=== PATIENT | male | born 2000 | race Two or more races ===

== ENCOUNTER 2021-04-07 19:13 | Emergency (ER) | payer BC, OTHER ==
[~2021-04-07] VITALS: Ht 185.4 cm; Wt 127.0 kg
[2021-04-07 21:11] VITALS: BP 149/79
[2021-04-07] MEDS ORDERED: SODIUM CHLORIDE 0.9% 250 ML IV ONE (21:45)
[2021-04-07] MEDS ORDERED: CLINDAMYCIN 900MG IV 50 ML IV ONE (21:45)
== END 2021-04-08 01:23 | disposition home or self-care (01) ==
LOC: ER 19:13
DX: L03.116 Cellulitis of left lower limb (principal)
CPT/HCPCS: 96361; 96365; 99284; J3490; J7030

== ENCOUNTER 2021-06-04 11:22 | Emergency (ER) | payer BC ==
[~2021-06-04] VITALS: Ht 185.4 cm; Wt 131.5 kg
[2021-06-04 11:24] VITALS: BP 146/72
== END 2021-06-04 13:36 | disposition home or self-care (01) ==
LOC: ER 11:22
DX: S93.401A Sprain of unspecified ligament of right ankle, initial encounter (principal); X50.0XXA Overexertion from strenuous movement or load, initial encounter; Y93.89 Activity, other specified; Y92.89 Other specified places as the place of occurrence of the external cause; Y99.8 Other external cause status
CPT/HCPCS: 73610

== ENCOUNTER 2023-09-19 15:47 | Emergency (ER) | payer SELFPAY ==
[~2023-09-19] VITALS: Ht 182.9 cm; Wt 143.3 kg
[2023-09-19] MEDS ORDERED: IBUP-1455 PO (19:21)
[2023-09-19] MEDS ORDERED: AMOX875T4 PO (19:21)
[2023-09-19 19:32] VITALS: BP 148/87; PULSE 88; RESP 17; TEMP 98.2; O2SAT 99
== END 2023-09-19 19:34 | disposition home or self-care (01) ==
LOC: ER 15:47
DX: S51.832A Puncture wound without foreign body of left forearm, initial encounter (principal); W54.0XXA Bitten by dog, initial encounter; Y93.89 Activity, other specified; Y92.89 Other specified places as the place of occurrence of the external cause; Y99.8 Other external cause status

== ENCOUNTER 2023-09-20 00:25 | Emergency (ER) | payer SELFPAY ==
[~2023-09-20] VITALS: Ht 182.9 cm; Wt 144.9 kg
[~2023-09-20 00:25] MED LIST: AMOX875T4 PO; IBUP-1455 PO
[2023-09-20 00:45] VITALS: BP 155/92; PULSE 81; RESP 20; O2SAT 96
== END 2023-09-20 05:18 | disposition home or self-care (01) ==
LOC: ER 00:25
DX: S51.812A Laceration without foreign body of left forearm, initial encounter (principal); Z79.899 Other long term (current) drug therapy; W54.0XXA Bitten by dog, initial encounter; Y93.89 Activity, other specified; Y92.89 Other specified places as the place of occurrence of the external cause; Y99.8 Other external cause status
CPT/HCPCS: 12001